=== PATIENT | female | born 1985 | race Two or more races ===

== ENCOUNTER 2016-11-27 19:16 | Emergency (ER) | payer OTHER ==
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
[2016-11-27] MEDS ORDERED: IBUPROFEN 600 MG TABLET PO ONE (20:43)
[2016-11-27] MEDS ORDERED: HYDROCODONE/ACETAMINOPHEN 5-325 MG 6 TAB/DSPK PO PRN (20:43)
[2016-11-27] MEDS ORDERED: CYCLOBENZAPRINE HCL 10 MG TABLET PO ONE (20:43)
[2016-11-27] MEDS ORDERED: HYDROCODONE/ACETAMINOPHEN 5-325 MG TABLET PO ONE (20:43)
[2016-11-27 21:40] VITALS: BP 120/64
== END 2016-11-27 21:24 | disposition home or self-care (01) ==
LOC: ER 19:16
DX: S29.019A Strain of muscle and tendon of unspecified wall of thorax, initial encounter (principal); M54.9 Dorsalgia, unspecified; V87.7XXA Person injured in collision between other specified motor vehicles (traffic), initial encounter; F17.200 Nicotine dependence, unspecified, uncomplicated
CPT/HCPCS: 72070; 99284